=== PATIENT | male | born 1945 | race Caucasian/White ===

== ENCOUNTER → 2017-12-06 | Day surgery (SDC) | payer MEDICARE ==
[~2017-12-06] VITALS: Ht 185.4 cm; Wt 94.1 kg
[~2017-12-06] MED LIST: CHLORHEXIDINE GLUCONATE 2 % 1 PACK (2 CLOTHS) TOPICAL PRN; HYDR-3516 PO; IBUP1TAB7 PO; LACTATED RINGER'S 1000 ML IV PRN; METOPROLOL TARTRATE 25 MG TAB PO PRN; NON-500T10 PO; ONDANSETRON ODT 4 MG TAB PO PRN; PERC5TAB12 PO; POVIDONE IODINE 5% (ANTISEPSIS KIT) 4 APPLICATIONS EACH NARE PRN; SODIUM CHLORID 0.9% 500 ML IV PRN; TAMS0.4C4 PO; oxyCODONE/ACETAMINOPHEN 5 MG/325 MG TAB PO PRN
[2017-12-06 10:38] LABS: BASOPHIL # 0.1 TH/MM3 (0-0.2); EOSINOPHIL # 0.2 TH/MM3 (0-0.4); EOSINOPHIL % 3.7 % (0.0-4.0); HEMATOCRIT 40.5 % (39.0-51.0); HEMOGLOBIN 13.9 GM/DL (13.0-17.0); LYMPH % 23.1 % (9.0-44.0); LYMPHOCYTE # 1.5 TH/MM3 (1.0-4.8); MEAN CELL VOLUME 91.1 FL (80.0-100.0); MEAN CORPUSCULAR HEMOGLOBIN 31.3 PG (27.0-34.0); MEAN CORPUSCULAR HGB CONC 34.4 % (32.0-36.0); MEAN PLATELET VOLUME 7.7 FL (7.0-11.0); MONO % 7.9 % (0.0-8.0); MONOCYTE # 0.5 TH/MM3 (0-0.9); NEUT % 64.3 % (16.0-70.0); PLATELET COUNT 225 TH/MM3 (150-450); RED BLOOD COUNT 4.44 MIL/MM3 (4.50-5.90); RED CELL DISTRIBUTION WIDTH 13.7 % (11.6-17.2); WHITE BLOOD COUNT 6.3 TH/MM3 (4.0-11.0)
--- NOTE | 2017-12-06 12:03 | RADRPT ---
EXAM DATE: 12/06/2017 10:35 AM EDT AGE/SEX: 72 years / Male INDICATIONS: Evaluate for pneumonia, pneumothorax, or any communicable disease. Pre op lithotripsy. CLINICAL DATA: This is the patient's initial encounter. Patient reports that signs and symptoms have been present for 1 day and indicates a pain score of 0/10. MEDICAL/SURGICAL HISTORY: None. None. COMPARISON: POI, XR ABDOMEN KUB, 11/16/2017. . FINDINGS: The abdominal bowel gas pattern is normal. No abnormal masses, or organomegaly is seen. The osseou s structures are unremarkable. A 9 mm calcification is again seen projecting over the left lower quad rant overlying the left psoas muscle just below the L4 transverse process. This is unchanged in posit ion from the prior study. A 5 mm calcification projects over the lower pole the right kidney. This is unchanged. A faint questionable calcification involving the left lower pole kidney is again noted an d unchanged. Venous calcifications are again seen overlying the pelvis. CONCLUSION: Bilateral renal calculi and suspected 9 mm left ureteral stone. Appearance is unchanged. Electronically signed by: Abhijeet Krishnan MD 12/06/2017 12:02 PM EDT
--- NOTE | 2017-12-06 13:05 | EKG ---
Date Performed: 12/06/2017 Time Performed: 09:53:09 PTAGE: 72 years EKG: Sinus rhythm BORDERLINE LEFT AXIS DEVIATION BORDERLINE ECG NO PREVIOUS TRACING DOCTOR: Horacio Galvez Interpretating Date/Time 12/06/2017 13:03:02
--- NOTE | 2017-12-06 13:39 | PD.OP ---
Operative Report Date of Surgery: Dec 06, 2017 Preoperative Diagnosis: (1) Ureteral calculus, left Postoperative Diagnosis: (1) Ureteral calculus, left Procedure: Extracorporeal shockwave lithotripsy left ureteral calculus Anesthesia: General Surgeon: Scott Keane Coat Joiner Lockstitch(s): None Operation and Findings: Indication for procedure: Case of a pleasant 72-year-old gentleman with bilateral renal calculi and a 9 mm left ureteral calculus who presents today to undergo extracorporeal shockwave lithotripsy of the left ureteral calculus. Operative procedure in detail: Patient was brought to the operating room suite and placed supine on the lithotripsy table. He was then placed under general anesthesia. After an appropriate time out was taken I proceeded with localizing the patient's left ureteral calculus with fluoroscopy. He subsequently received extracorporeal shockwave lithotripsy utilizing the [employer] 3000 lithotripsy device. The patient received a total of 3000 shocks with a maximum power level setting of 20. At the conclusion of the procedure the stone was significantly griddle attendant in intensity consistent with at least some degree of fragmentation. The patient tolerated the procedure without complications and was transferred to the PACU in satisfactory condition. Scott Keane MD Dec 06, 2017 13:39
[2017-12-06 14:16] VITALS: BP 121/73; PULSE 64; RESP 20; TEMP 97.7; O2SAT 98
== END | disposition home or self-care (01) ==
LOC: HSDC 09:14
PROVIDERS: ATTEND Urology
DX: N20.2 Calculus of kidney with calculus of ureter (principal); R94.31 Abnormal electrocardiogram [ECG] [EKG]
CPT/HCPCS: 00873; 50590; 74018; 85025; 93005; J3010; J7120